=== PATIENT | female | born 1945 | race Caucasian/White ===

== ENCOUNTER 2019-06-04 21:11 | Emergency (ER) | payer BC ==
--- NOTE | 2019-06-04 21:29 | EDM.PDOC ---
ED HPI GENERAL MEDICAL PROBLEM - General Chief Complaint: Lower Extremity Injury/Pain Stated Complaint: PT HURT LT FT Time Seen by Provider: 06/04/19 21:27 Source of Information: Reports: Patient History Limitations: Reports: No Limitations - History of Present Illness INITIAL COMMENTS - FREE TEXT/NARRATIVE: HISTORY AND PHYSICAL: History of present illness: Patient is a 73-year-old female who presents to the emergency room with complaints of pain at the base of her third, fourth and fifth toe. She states on 05/31/19 she had hit her foot along the side of a grocery cart. Since that time she has had pain and bruising. Pain is increased with weightbearing or movement of her toes. She denies any other extremity involvement. Has no systemic complaints. Review of systems: As per history of present illness and below otherwise all systems reviewed and negative. Past medical history: As per history of present illness and as reviewed below otherwise noncontributory. Surgical history: As per history of present illness and as reviewed below otherwise noncontributory. Social history: See social history for further information Family history: As per history of present illness and as reviewed below otherwise noncontributory. Physical exam: General: Well-developed and well-nourished 73-year-old female. Alert and oriented. Nontoxic appearing and in no acute distress. HEENT: Atraumatic, normocephalic, pupils equal and reactive bilaterally, negative for conjunctival pallor or scleral icterus, mucous membranes moist, trachea midline. No drooling or trismus noted. No meningeal signs. No hot potato voice noted. Lungs: Clear to auscultation, breath sounds equal bilaterally. Heart: S1S2, regular rate and rhythm without overt murmur Abdomen: Soft, nondistended, nontender. Skin: Bruising noted along the base of fifth, fourth and third toe on the left foot. Otherwise skin is intact, warm, dry. No lesions or rashes noted. Extremities: Pain with palpation at the base of the left fifth toe, moves all extremities per self without difficulty or deficits, negative for cords or calf pain. Refill less than 3 seconds. Strong equal and pretibial pulse Neurovascular unremarkable. Neuro: Awake, alert, oriented. Cranial nerves II through XII unremarkable. Cerebellum unremarkable. Motor and sensory unremarkable throughout. Exam nonfocal. Notes: The radiologist is reading the x-ray as normal. Although I do see some irregularity on the fifth toe. Encouraged her to follow-up with podiatry. Postop shoe given. Patient reports that she has crutches at home and declines the need for these here at the hospital. Supportive care measures were reviewed and discussed. Voices understanding and is agreeable to plan of care. Denies any further questions or concerns at this time. Diagnostics: X-ray Therapeutics: Post Op-shoe Prescription: Tylenol #3 (#15) Impression: Left foot injury Plan: 1. Rest, ice, elevate the affected extremity. Please wear the splint as directed. 2. Tylenol and/or Ibuprofen as needed for pain management. 3. Follow up with the Public Area Attendant or Orthopedic provider as we discussed. Return to the ED as needed and as discussed. Definitive disposition and diagnosis as appropriate pending reevaluation and review of above. left foot Pain Score (Numeric/FACES): 6 - Related Data Allergies Allergy/AdvReac Type Severity Reaction Status Date / Time benzocaine [From [facility]] Allergy Anaphylactic Verified 06/04/19 21:26 Shock lidocaine Allergy Anaphylactic Verified 06/04/19 21:26 Shock shellfish derived Allergy Respiratory Verified 06/04/19 21:26 Depression tetanus and diphtheria Allergy Swelling Verified 06/04/19 21:26 toxoids [tetanus & diphtheria toxoids] Home Meds: Home Meds Albuterol [Ventolin HFA] 2 puff INH ASDIRECTED PRN 10/23/14 [History] Divalproex Sodium [Depakote] 500 mg PO ASDIRECTED 10/23/14 [History] HCTZ/Triamterene [Maxzide 25-37.5 MG] 25 - 37.5 mg PO DAILY 10/23/14 [History] Levothyroxine Sodium [Synthroid] 125 mcg PO DAILY 10/23/14 [History] Budesonide/Formoterol Fumarate [Symbicort 160-4.5 Mcg Inhaler] 2 puff INH BID [History] Past Medical History HEENT History: Reports: Other (See Below) Other HEENT History: wears glassses Cardiovascular History: Reports: Hypertension Respiratory History: Reports: Asthma, Bronchitis, Recurrent Genitourinary History: Reports: None Other Musculoskeletal History: ankle fracture. and left wrist ankle Neurological History: Reports: None Psychiatric History: Reports: Bipolar Endocrine/Metabolic History: Reports: Hypothyroidism - Infectious Disease History Infectious Disease History: Reports: Rheumatic Fever Other Infectious Disease History: childhood - Past Surgical History Neurological Surgical History: Reports: Laminectomy, Spinal Fusion Musculoskeletal Surgical History: Reports: Other (See Below) Social & Family History - Family History Family Medical History: Noncontributory - Caffeine Use Caffeine Use: Reports: Coffee Review of Systems - Review of Systems Review Of Systems: ROS reveals no pertinent complaints other than HPI. ED EXAM, GENERAL - Physical Exam Exam: See Below (See dictation) Course - Vital Signs Last Recorded V/S: Last Vital Signs Temp 98.1 F 06/04/19 21:17 Pulse 73 06/04/19 21:17 Resp 19 06/04/19 21:17 BP 153/62 H 06/04/19 21:17 Pulse Ox 95 06/04/19 21:17 - Orders/Labs/Meds Orders: Active Orders 24 hr Category Date Time Status Foot 2V Lt [CR] Stat Exams 06/04/19 21:26 Taken Departure - Departure Time of Disposition: 22:13 Disposition: Home, Self-Care 01 Clinical Impression: Injury of foot, left Qualifiers: Encounter type: initial encounter Qualified Code(s): S99.922A - Unspecified injury of left foot, initial encounter - Discharge Information Instructions: Foot Sprain Referrals: PCP,None [Primary Care Provider] - Forms: ED Department Discharge Additional Instructions: The following information is given to patients seen in the emergency department who are being discharged to home. This information is to outline your options for follow-up care. We provide all patients seen in our emergency department with a follow-up referral. The need for follow-up, as well as the timing and circumstances, are variable depending upon the specifics of your emergency department visit. If you don't have a primary care physician on staff, we will provide you with a referral. We always advise you to contact your personal physician following an emergency department visit to inform them of the circumstance of the visit and for follow-up with them and/or the need for any referrals to a consulting specialist. The emergency department will also refer you to a specialist when appropriate. This referral assures that you have the opportunity for follow-up care with a specialist. All of these measure are taken in an effort to provide you with optimal care, which includes your follow-up. Under all circumstances we always encourage you to contact your private physician who remains a resource for coordinating your care. When calling for follow-up care, please make the office aware that this follow-up is from your recent emergency room visit. If for any reason you are refused follow-up, please contact the [facility] Emergency Department at and asked to speak to the emergency department charge nurse. [facility] [address] [place] [id number] [place] [address] 1. Rest, ice, elevate the affected extremity. Please wear the splint as directed. 2. Tylenol and/or Ibuprofen as needed for pain management. 3. Follow up with the Public Area Attendant or Orthopedic provider as we discussed. Return to the ED as needed and as discussed. - My Orders Last 24 Hours: My Active Orders 06/04/19 21:26 Foot 2V Lt [CR] Stat - Assessment/Plan Last 24 Hours: My Active Orders 06/04/19 21:26 Foot 2V Lt [CR] Stat
--- NOTE | 2019-06-04 22:10 | CR ---
Indication: Injury Technique: Two views left foot Comparison: None Findings: Bones: Alignment is normal. No fractures or bone lesions. Small inferior calcaneal enthesophyte. Joint spaces: Unremarkable. Soft tissues: Unremarkable. Impression: No acute abnormality. Dictated by Josi Blas MD @ Jun 04 2019 10:08PM Signed by Dr. Josi Blas @ Jun 04 2019 10:08PM
[2019-06-04 22:26] VITALS: BP 146/55; PULSE 72
== END 2019-06-04 22:20 | disposition home or self-care (01) ==
LOC: MW.ED 21:11
DX: S99.922A Unspecified injury of left foot, initial encounter (principal); I10 Essential (primary) hypertension; J45.909 Unspecified asthma, uncomplicated; E03.9 Hypothyroidism, unspecified; F31.9 Bipolar disorder, unspecified; Z91.013 Allergy to seafood; Z23 Encounter for immunization; Z88.8 Allergy status to other drugs, medicaments and biological substances; Z88.4 Allergy status to anesthetic agent; Z79.899 Other long term (current) drug therapy; W22.8XXA Striking against or struck by other objects, initial encounter
CPT/HCPCS: 73620-26-LT; 73620-LT; 99283; 99283-25